=== PATIENT | male | born 1960 | race Caucasian/White ===

== ENCOUNTER 2025-08-02 09:03 | Outpatient (CLI) | payer MEDICARE | END 2025-08-02 09:04 | disposition home or self-care (01) | LOC: CSHSLEEP 09:03 | PROVIDERS: ATTEND Family Medicine | DX: G47.9 Sleep disorder, unspecified (principal); R53.83 Other fatigue; R06.83 Snoring; G47.33 Obstructive sleep apnea (adult) (pediatric) | CPT/HCPCS: 95800 ==